=== PATIENT | female | born 1940 | race Caucasian/White ===

== ENCOUNTER → 2019-07-15 15:47 | Outpatient (BNVA) | payer MEDICARE, SELFPAY | PROVIDERS: Family Provider Family Medicine; PCP Family Medicine; Visit Provider Nurse Practitioner Family | DX: J45.40 Moderate persistent asthma, uncomplicated (principal); R06.02 Shortness of breath; R53.1 Weakness | CPT/HCPCS: 36416; 82962 ==

== ENCOUNTER → 2020-02-28 16:30 | Outpatient (BNVA) | payer MEDICARE, SELFPAY | PROVIDERS: Family Provider Family Medicine; PCP Family Medicine; Visit Provider Registered Nurse | DX: I10 Essential (primary) hypertension (principal); M19.90 Unspecified osteoarthritis, unspecified site; E03.9 Hypothyroidism, unspecified; E78.5 Hyperlipidemia, unspecified; G62.9 Polyneuropathy, unspecified; F41.9 Anxiety disorder, unspecified; M54.5 Low back pain; G89.29 Other chronic pain; G60.9 Hereditary and idiopathic neuropathy, unspecified | CPT/HCPCS: 80053; 80061; 84443; 85025; 85651; 86140 ==

== ENCOUNTER → 2020-04-11 13:50 | Outpatient (BNVA) | payer MEDICARE, SELFPAY | PROVIDERS: Family Provider Family Medicine; PCP Family Medicine; Visit Provider Registered Nurse | DX: R19.7 Diarrhea, unspecified (principal); F41.9 Anxiety disorder, unspecified; M19.90 Unspecified osteoarthritis, unspecified site | CPT/HCPCS: 81000 ==

== ENCOUNTER → 2020-09-29 11:26 | Outpatient (BNVA) | payer MEDICARE, SELFPAY | PROVIDERS: Family Provider Family Medicine; PCP Registered Nurse; Visit Provider Registered Nurse | DX: I10 Essential (primary) hypertension (principal); E78.5 Hyperlipidemia, unspecified; E03.9 Hypothyroidism, unspecified; J45.20 Mild intermittent asthma, uncomplicated; F41.9 Anxiety disorder, unspecified; J44.9 Chronic obstructive pulmonary disease, unspecified; G62.9 Polyneuropathy, unspecified; M79.89 Other specified soft tissue disorders; F41.1 Generalized anxiety disorder; G60.9 Hereditary and idiopathic neuropathy, unspecified | CPT/HCPCS: 80053; 80061; 81000; 83880; 84443; 85025 ==

== ENCOUNTER 2020-10-24 12:43 | Outpatient (CLI) | payer MEDICARE, SELFPAY ==
--- NOTE | 2020-10-24 12:30 | XR_ITS ---
WS: [id number] ABDOMEN KUB CLINICAL INFORMATION: Renal/ureteral calculi. COMPARISON: None. FINDINGS: Mild constipation right colon. Scattered air normal caliber small and large bowel. No significant bow el distention. Postoperative changes pedicle screw fixation L4-5. Cholecystectomy clips. Pelvic phleb oliths. Additional ovoid calcification right pelvis may be pelvic phlebolith versus ureteral calculus. This m easures 12 mm and could be further evaluated with renal stone protocol CT abdomen pelvis if concern f or renal calculi. XR/XR KUB [id number] Impression: 1. Mild constipation right colon. Otherwise normal bowel gas pattern. 2. Prior postoperative changes pedicle screw fixation L4-5. 3. Mild lumbar curve convex left. 4. Pelvic phleboliths. 5. Additional ovoid calcification right pelvis may be pelvic phlebolith versus ureteral calculus. This measures 12 mm and could be further evaluated with tracy al stone protocol CT abdomen pelvis if concern for renal calculi.
== END 2020-10-24 12:44 | disposition home or self-care (01) ==
PROVIDERS: PCP Registered Nurse; Visit Provider Registered Nurse
DX: K59.00 Constipation, unspecified (principal); N20.2 Calculus of kidney with calculus of ureter; I87.8 Other specified disorders of veins
CPT/HCPCS: 74018

== ENCOUNTER → 2020-10-31 14:54 | Outpatient (BNVA) | payer MEDICARE, SELFPAY | PROVIDERS: PCP Registered Nurse; Visit Provider Registered Nurse | DX: N20.0 Calculus of kidney (principal); K59.04 Chronic idiopathic constipation | CPT/HCPCS: 81000 ==

== ENCOUNTER 2020-11-24 11:54 | Outpatient (CLI) | payer MEDICARE, SELFPAY ==
--- NOTE | 2020-11-24 12:00 | USCV_ITS ---
Kavitha Morfin Age: 80 Gender: F : 1940 Exam Date: 11/24/2020 12:26 Ordering Phys: Anamaria Guerrier MD ([email or web address]) Technologist: Katherin Pham [place] [facility] [place]: ischemic CM BP: 149 / 57 HR: 56 Rhythm: Sinus Technical Quality: Adequate MEASUREMENTS (Male / Female) Normal Values 2D ECHO LV Diastolic Diameter PLAX 3.8 cm 4.2 - 5.9 / 3.9 - 5.3 cm LV Systolic Diameter PLAX 3.0 cm LV Chamber Size 3.5 cm IVS Diastolic Thickness 1.1 cm 0.6 - 1.0 / 0.6 - 0.9 cm IVS Systolic Thickness 1.4 cm LVPW Diastolic Thickness 1.2 cm 0.6 - 1.0 / 0.6 - 0.9 cm LVPW Systolic Thickness 1.7 cm RV Chamber Size 4.1 cm LVOT Diameter 2.0 cm LV Ejection Fraction 2D Teich 43.2 % LV Ejection Fraction MOD 2C 47.5 % LV Ejection Fraction 2C AL 48.3 % LA Diameter 3.1 cm LA Width 3.5 cm LA Height 6.1 cm RA Width 4.9 cm RA Height 4.4 cm Aorta at Sinotubular Diameter 2.0 cm M-MODE LV Diastolic Diameter MM 3.6 cm 4.2 - 5.9 / 3.9 - 5.3 cm LV Systolic Diameter MM 1.7 cm LV Ejection Fraction MM Teich 84.5 % IVS Diastolic Thickness MM 0.8 cm 0.6 - 1.0 / 0.6 - 0.9 cm IVS Systolic Thickness MM 1.1 cm LVPW Diastolic Thickness MM 1.0 cm 0.6 - 1.0 / 0.6 - 0.9 cm LVPW Systolic Thickness MM 1.3 cm Aortic Annulus Diameter 3.1 cm LA Ao Ratio MM 1.1 MV E Point Septal Separation 0.6 cm DOPPLER AV Peak Velocity 180.0 cm/s LVOT Peak Velocity 83.0 cm/s AV Area Cont Eq vti 1.4 cm squared AV Area Cont Eq pk 1.5 cm squared MV Area PHT 5.4 cm squared Mitral E to A Ratio 1.6 MV E' Velocity 66.5 cm/s Mitral E to MV E' Ratio 15.1 Mitral E to LV E' Lateral Ratio 10.3 Mitral E to LV E' Septal Ratio 28.1 TR Peak Velocity 210.4 cm/s TR Peak Gradient 17.7 mmHg TR Mean Velocity 141.2 cm/s TR Mean Gradient 10.5 mmHg TR Velocity Time Integral 76.1 cm TV Peak E Velocity 71.0 cm/s Right Atrial Pressure 3.0 mmHg Pulmonary Artery Systolic Pressu 20.7 mmHg PV Peak Velocity 69.0 cm/s RV Acceleration Time 0.1 s RV Ejection Time 0.4 s RV AcT/ET 0.3 FINDINGS Left Ventricle Severe diffuse hypokinesia of the left ventricle with ejection fraction of around 30%-visual. Because of the frequent PVCs, segmental wall motion analysis and ejection fraction estimation could be misleading Right Ventricle Possibly normal RV size and ejection fraction Right Atrium Mildly increased right atrial size. Left Atrium Mildly increased left atrial size. Mitral Valve Moderate eccentric mitral valve regurgitation. Aortic Valve Thickened aortic valve. Tricuspid Valve [id number] tricuspid valve regurgitation. Estimated pulmonary artery peak systolic pressure 21 mmHg. This could be an underestimation because of the poor Doppler signals Pulmonic Valve Pulmonic valve not well visualized. Pericardium No pericardial effusion. Aorta Normal aortic annulus size. CONCLUSIONS Normal LV size with diminished ejection fraction of 30%. Severe diffuse hypokinesia of the left ventricle. Mild biatrial enlargement. Moderate eccentric mitral valve regurgitation. [id number] tricuspid valve regurgitation. Estimated pulmonary artery peak systolic pressure 21 mmHg. This could be an underestimation because of the poor Doppler signals. Features of aortic valve sclerosis There is no pericardial effusion. There are no intracardiac masses. Compared to the study from 09/24/2017, there is significant drop in the LV ejection fraction from 50% to 30% Dr Anamaria Guerrier MD [facility] (Electronically Signed) Final Date: 24 November 2020 16:44 S
== END 2020-11-24 11:55 | disposition home or self-care (01) ==
PROVIDERS: PCP Registered Nurse; Visit Provider Internal Medicine Cardiovascular Disease
DX: I25.5 Ischemic cardiomyopathy (principal); I08.1 Rheumatic disorders of both mitral and tricuspid valves
CPT/HCPCS: 93306

== ENCOUNTER → 2020-12-05 11:32 | Outpatient (BNVA) | payer MEDICARE, SELFPAY | PROVIDERS: PCP Registered Nurse; Visit Provider Internal Medicine Cardiovascular Disease | DX: M79.89 Other specified soft tissue disorders (principal); I49.9 Cardiac arrhythmia, unspecified; I10 Essential (primary) hypertension; I25.5 Ischemic cardiomyopathy; R06.02 Shortness of breath; I50.33 Acute on chronic diastolic (congestive) heart failure | CPT/HCPCS: 80048; 83880 ==